=== PATIENT | male | born 1960 | race Caucasian/White ===

== ENCOUNTER 2022-01-22 13:43 | Day surgery (SDC) | payer BC ==
[2022-01-20 11:12] LABS: BASOPHILS % (AUTO) 0.3 % (0-1); EOSINOPHILS # (AUTO) 0.1 X10'3 (0-0.9); EOSINOPHILS % (AUTO) 1.8 % (0-6); HEMATOCRIT 48.7 % (42.0-52.0); HEMOGLOBIN 16.5 g/dl (14.0-17.9); LYMPHOCYTES # (AUTO) 1.1 X10'3 (1.1-4.8); LYMPHOCYTES % (AUTO) 18.1 % (21-51); MEAN CORPUSCULAR HEMOGLOBIN 28.7 PG (27.0-31.0); MEAN CORPUSCULAR HGB CONC 33.9 g/dL (33.0-36.5); MEAN CORPUSCULAR VOLUME 84.8 FL (78-98); MEAN PLATELET VOLUME 7.6 FL (7.4-10.4); MONOCYTES # (AUTO) 0.5 X10'3 (0-0.9); MONOCYTES % (AUTO) 7.8 % (2-12); NEUTROPHILS # (AUTO) 4.2 X10'3 (1.8-7.7); PLATELET COUNT 154 X10'3 (140-440); RED BLOOD COUNT 5.74 X10'6 (4.70-6.10); RED CELL DISTRIBUTION WIDTH 14.4 % (11.5-14.5); WHITE BLOOD COUNT 5.9 X10'3 (4.5-11.0)
[2022-01-20 11:19] LABS: ALBUMIN 4.1 G/DL (3.4-5.0); ANION GAP 5 (8-16); BLOOD UREA NITROGEN 19 MG/DL (7-18); BUN/CREATININE RATIO 17.9 (5.4-32.0); CALCIUM 9.1 MG/DL (8.5-10.1); CHLORIDE 101 MMOL/L (99-107); CREATININE 1.06 MG/DL (0.60-1.10); GLUCOSE 117 MG/DL (70-104); SODIUM 138 MMOL/L (135-145); TOTAL CARBON DIOXIDE 32.4 MMOL/L (24-32); eGFR 71 ML/MIN
[2022-01-20 11:22] LABS: APTT 25 SECONDS (22-32)
[~2022-01-22] VITALS: Ht 175.3 cm; Wt 95.3 kg
[2022-01-22] VITALS (10 sets, daily range): BP systolic 123–145; BP diastolic 70–87
[2022-01-22] MEDS ORDERED: diphenhydrAMINE 25mg capsule PO PRN (13:55)
[2022-01-22] MEDS ORDERED: LORazepam 0.5 MG tablet PO PRN (13:55)
[2022-01-22] MEDS ORDERED: normal saline 1,000 ML IV SCH (13:55)
[2022-01-22] MEDS ORDERED: ATOR10TA70 PO (14:13)
[2022-01-22] MEDS ORDERED: OMEP20CA16 PO (14:13)
[2022-01-22] MEDS ORDERED: LISI1TAB53 PO (14:13)
[2022-01-22] MEDS ORDERED: THYR60TA2 PO (14:19)
[2022-01-22] MEDS ORDERED: IBUP-24 PO (14:19)
[2022-01-22] MEDS ORDERED: ASPI-1071 PO (14:19)
[2022-01-22] MEDS ORDERED: MELA5TAB12 PO (14:19)
[2022-01-22] MEDS ORDERED: MULT-1085 PO (14:19)
[2022-01-22] MEDS ORDERED: LEVO5TAB29 PO (14:19)
[2022-01-22] MEDS ORDERED: TEST100V11 IM (14:19)
[2022-01-22] MEDS ORDERED: METO50TA7 PO (14:19)
[2022-01-22] MEDS ORDERED: nitroGLYCERIN-Tridil 50MG/D5W 250 ML IV ONE (15:42)
[2022-01-22] MEDS ORDERED: fentaNYL/PF 50MCG/1 ML 2ML syringe ONE ×2 (15:43→17:36)
[2022-01-22] MEDS ORDERED: verapamil 2.5 mg/ml inj IV ONE (15:43)
[2022-01-22] MEDS ORDERED: iohexol 350MG/ML 100ml bottle IV ONE ×3 (15:43→17:39)
[2022-01-22] MEDS ORDERED: LIDOcaine 1% (10mg/ml)w/preservative injection 20ml MDV ONE (15:43)
[2022-01-22] MEDS ORDERED: midazolam 1 mg/ML 2ml injection ONE ×4 (15:43→17:28)
[2022-01-22] MEDS ORDERED: heparin 1,000unit/ml 10ml vial 10 ML ONE ×2 (15:43→17:11)
[2022-01-22] MEDS ORDERED: clopidogrel 300mg tablet ONE (17:10)
[2022-01-22] MEDS ORDERED: aspirin 325mg tablet ONE (17:10)
[2022-01-22] MEDS ORDERED: normal saline 1000ml 1,000 ML IV SCH (18:20)
--- NOTE | 2022-01-22 20:15 | NUR ---
Vasc band removed, right radial puncture site stable, dressing applied. No bruising, bleeding or hematoma noted. Instructions given to pt regarding what to do if site begins to bleed.
--- NOTE | 2022-01-22 20:18 | NUR ---
Written and verbal DC instructions given to pt and . Including what to do if right radial site were to start bleeding, original copy of prescription for Plavix and the importance of picking up and starting to take medication in AM, also Calin stent card with stent information. Both pt and verbalize understanding.
--- NOTE | 2022-01-22 20:54 | NUR ---
PIV DC cath intact, VSS. Right radial site stable, dressing CD&I. Pt amb in hallway, gait steady. Pt to rest room voided n toilet. assisted pt to get dressed.
--- NOTE | 2022-01-22 21:00 | NUR ---
DC to home with . Transferred to private car via WC, pt able to transfer self to car. Steady on feet.
== END 2022-01-22 21:00 | disposition home or self-care (01) ==
LOC: SSTAY O 13:43
PROVIDERS: ATTEND Internal Medicine Interventional Cardiology
DX: R94.39 Abnormal result of other cardiovascular function study (principal); R07.89 Other chest pain; I25.110 Atherosclerotic heart disease of native coronary artery with unstable angina pectoris; I10 Essential (primary) hypertension; E78.5 Hyperlipidemia, unspecified; I65.23 Occlusion and stenosis of bilateral carotid arteries; I47.1 Supraventricular tachycardia; Z79.899 Other long term (current) drug therapy; Z79.82 Long term (current) use of aspirin; Z95.818 Presence of other cardiac implants and grafts; Z82.49 Family history of ischemic heart disease and other diseases of the circulatory system
CPT/HCPCS: 36415; 80048; 85025; 85610; 85730; 93005; 93458; 99152; 99153; C1725; C1751; C1769; C1874; C1894; C9600; J1644; J2250; J3010; J3490; Q0163; Q9967; A4620; A5120

== ENCOUNTER 2023-09-30 14:44 | Emergency (ER) | payer BC ==
[~2023-09-30] VITALS: Ht 175.3 cm; Wt 90.4 kg
[~2023-09-30 14:44] MED LIST: ASPI-1071 PO; ATOR10TA70 PO; IBUP-24 PO; LEVO5TAB29 PO; LISI1TAB53 PO; MELA5TAB12 PO; METO50TA7 PO; MULT-1085 PO; OMEP20CA16 PO; TEST100V11 IM; THYR60TA2 PO
[2023-09-30] MEDS ORDERED: morphine 2 MG/ML inj. syringe IM ONE (14:55)
[2023-09-30] MEDS ORDERED: ondansetron 4mg rapidly disintigrating tab PO ONE (14:55)
[2023-09-30] MEDS ORDERED: IBUP-1984 PO (16:30)
[2023-09-30] MEDS ORDERED: HYDR-3965 PO (16:30)
[2023-09-30 16:57] VITALS: BP 180/78; PULSE 70; TEMP 98.2; O2SAT 98
[2023-09-30 17:03] VITALS: RESP 16
--- NOTE | 2023-09-30 17:23 | NUR ---
REVIEWED AND AGREE WITH ASSESSMENT
== END 2023-09-30 17:03 | disposition home or self-care (01) ==
LOC: ER 14:45
DX: S46.911A Strain of unspecified muscle, fascia and tendon at shoulder and upper arm level, right arm, initial encounter (principal); X50.0XXA Overexertion from strenuous movement or load, initial encounter; Y93.89 Activity, other specified; Y92.89 Other specified places as the place of occurrence of the external cause; Y99.8 Other external cause status
CPT/HCPCS: 73030; 96372; 99283; J2270; A4565

== ENCOUNTER 2023-10-06 08:31 | Outpatient (CLI) | payer BC ==
[~2023-10-06 08:31] MED LIST changes: +HYDR-3965 PO; +IBUP-1984 PO
== END 2023-10-06 23:59 | disposition home or self-care (01) ==
LOC: RAD 08:31
PROVIDERS: ATTEND Family Medicine
DX: M75.121 Complete rotator cuff tear or rupture of right shoulder, not specified as traumatic (principal); M75.81 Other shoulder lesions, right shoulder; M19.011 Primary osteoarthritis, right shoulder; M25.511 Pain in right shoulder
CPT/HCPCS: 73221